=== PATIENT | female | born 1960 ===

== ENCOUNTER 2018-02-18 21:07 | Observation (INO) | payer OTHER ==
[2018-02-18 21:32] VITALS: BMI 35.5
--- NOTE | 2018-02-18 21:47 | ED PDOC ---
Arrival/HPI - General Time Seen by Provider: 02/18/18 21:09 Historian: Patient, Family - History of Present Illness Narrative History of Present Illness (Text): 02/18/18 21:43 Kennedi Zamorano is a 58 year old female, whose past medical history includes hypertension, who presents to the Emergency department accompanied by relative complaining of chest discomfort. Patient states, via relative acting as middleware systems architect, she had eaten shrimp earliier and unsure if this was the cause. Patient states she is able to tolerate PO without difficulty and denies any abdominal pain, nausea, or vomiting. Patient also denies any shortness of breath , back pain, neck pain, headache, dizziness, or any other complaints. PMD: Dr. Mannie Teague Symptom Onset: Gradual Symptom Course: Unchanged Activities at Onset: Light Context: Home Past Medical History - Provider Review Nursing Documentation Reviewed: Yes Family/Social History - Physician Review Nursing Documentation Reviewed: Yes Family/Social History: Unknown Family HX Allergies/Home Meds Allergies/Adverse Reactions: Allergies sulfa Allergy (Uncoded 02/18/18 22:35) ANAPHYLAXIS Home Medications: Home Meds Medication Instructions Recorded Confirmed Aspirin [[facility] Aspirin] 1 tab PO DAILY 02/19/18 02/19/18 Cholecalciferol [Vitamin D] 2,000 iu PO DAILY 02/19/18 02/19/18 Hydroxychloroquine Sulfate 200 mg PO BID 02/19/18 02/19/18 [Plaquenil] Levothyroxine Sodium [Levo-T] 1 tab PO DAILY 02/19/18 02/19/18 Losartan/Hydrochlorothiazide 1 tab PO DAILY 02/19/18 02/19/18 [Losartan-Hctz 100-12.5 mg Tab] Omeprazole [Omeprazole] 20 mg PO DAILY 02/19/18 02/19/18 Simvastatin [Zocor] 40 mg PO DAILY 02/19/18 02/19/18 levETIRAcetam [Keppra] 250 mg PO BID 02/19/18 02/19/18 Review of Systems - Physician Review All systems were reviewed & negative as marked: Yes - Review of Systems Constitutional: Normal. absent: Fevers Eyes: Normal ENT: Normal Respiratory: Normal. absent: SOB, Cough Cardiovascular: Chest Pain Gastrointestinal: Normal. absent: Abdominal Pain, Diarrhea, Nausea, Vomiting Genitourinary Female: Normal. absent: Dysuria, Frequency, Hematuria, Urine Output Changes Musculoskeletal: Normal. absent: Back Pain, Neck Pain Skin: Normal. absent: Rash Neurological: Normal. absent: Headache, Dizziness Endocrine: Normal Hemo/Lymphatic: Normal Psychiatric: Normal Physical Exam Vital Signs Reviewed: Yes Vital Signs Temp Pulse Pulse Resp BP Pulse Ox 02/19/18 04:54 59 L 102 H 102/59 L 98 02/19/18 03:06 74 18 103/68 96 02/18/18 22:40 60 02/18/18 21:32 98.1 F 79 18 125/70 98 Temperature: Afebrile Blood Pressure: Normal Pulse: Regular Respiratory Rate: Normal Appearance: Positive for: Well-Appearing, Non-Toxic, Comfortable Pain Distress: None Mental Status: Positive for: Alert and Oriented X 3 - Systems Exam Head: Present: Atraumatic, Normocephalic Pupils: Present: PERRL Extroacular Muscles: Present: EOMI Conjunctiva: Present: Normal Mouth: Present: Moist Mucous Membranes Neck: Present: Normal Range of Motion. No: Meningeal Signs, MIDLINE TENDERNESS , Paraspinal Tenderness Respiratory/Chest: Present: Clear to Auscultation, Good Air Exchange. No: Respiratory Distress, Accessory Muscle Use Cardiovascular: Present: Regular Rate and Rhythm, Normal S1, S2. No: Murmurs Abdomen: No: Tenderness, Distention, Peritoneal Signs Back: Present: Normal Inspection. No: CVA Tenderness, Midline Tenderness, Paraspinal Tenderness Upper Extremity: Present: Normal Inspection. No: Cyanosis, Edema Lower Extremity: Present: Normal Inspection. No: Edema Neurological: Present: GCS=15, CN II-XII Intact, Speech Normal, Motor Func Grossly Intact, Normal Sensory Function, Normal Cerebellar Funct Skin: Present: Warm, Dry, Normal Color. No: Rashes Psychiatric: Present: Alert, Oriented x 3, Normal Insight, Normal Concentration Medical Decision Making ED Course and Treatment: 02/18/18 21:43 Impression: 58 year old female complaining of chest discomfort. Plan: -- EKG -- Chest X-ray -- Labs, cardiac enzymes -- Reassess and disposition Prior Visits: Notes and results from previous visits were reviewed. Progress Notes: Reviewed EKG, NSR at 74 bpm. Occasional PVC. Non-specific ST/T wave changes. 02/18/18 23:31 Chest X-ray reviewed, shows no acute processes. 02/18/18 23:37 Case discussed with medical practitioners nonprofit manager, who is aware and agrees with plan. Case discussed with Dr. Pineda, who is aware and agrees with plan. Accepts pt in to hospitalist service. Pt will go to Telemetry observation for chest pain. - Lab Interpretations Lab Results: 02/18/18 22:00 02/18/18 22:00 Lab Results 02/18/18 22:00: WBC 8.5, RBC 4.38, Hgb 12.2, Hct 36.5, MCV 83.3, MCH 27.9, MCHC 33.4, RDW 13.9, Plt Count 303, MPV 9.7 02/18/18 22:00: Sodium 143, Potassium 4.1, Chloride 106, Carbon Dioxide 26, Anion Gap 16, BUN 12, Creatinine 0.6 L, Est GFR ( Amer) > 60, Est GFR ( Non-Af Amer) > 60, Random Glucose 111 H, Calcium 8.9, Total Bilirubin 0.3, AST 40 H, ALT 28, Alkaline Phosphatase 106, Lactate Dehydrogenase 497, Total Creatine Kinase 106, Troponin I < 0.01, Total Protein 7.4, Albumin 4.1, Globulin 3.3, Albumin/Globulin Ratio 1.2 02/18/18 22:00: PT 10.7, INR 0.94, APTT 25.4 - RAD Interpretation Radiology Orders: 02/18/18 21:46 CHEST PORTABLE [RAD] Stat - Medication Orders Current Medication Orders: Discontinued Medications Aspirin (Aspirin) 325 mg PO ONCE STA Stop: 02/18/18 21:50 Last Admin: 02/18/18 22:06 Dose: 325 mg - Scribe Statement The provider has reviewed the documentation as recorded by the Bethany Farfan Provider Scribe Attestation: All medical record entries made by the Bethany were at my direction and personally dictated by me. I have reviewed the chart and agree that the record accurately reflects my personal performance of the history, physical exam, medical decision making, and the department course for this patient. I have also personally directed, reviewed, and agree with the discharge instructions and disposition. Disposition/Present on Arrival - Present on Arrival Any Indicators Present on Arrival: No History of DVT/PE: No History of Uncontrolled Diabetes: No Urinary Catheter: No History of Decub. Ulcer: No History Surgical Site Infection Following: None - Disposition Have Diagnosis and Disposition been Completed?: Yes Diagnosis: Chest pain Disposition: HOSPITALIZED Disposition Time: 02:19 Patient Problems: Current Active Problems Problem Status Onset Chest pain Acute Condition: STABLE
[2018-02-18 22:31] LABS: ALB/GLOB RATIO 1.2 (1.1-1.8); ALBUMIN 4.1 g/dL (3.0-4.8); ALT/SGPT 28 U/L (7-56); AST/SGOT 40 U/L (14-36); BLOOD UREA NITROGEN 12 mg/dL (7-21); CALCIUM 8.9 mg/dL (8.4-10.5); GFR AFRICAN-AMERICAN > 60; GFR NON-AFRICAN AMERICAN > 60
[2018-02-18 22:38] LABS: HEMOGLOBIN 12.2 g/dL (12.0-16.0); MEAN CELL VOLUME 83.3 fl (80.0-105.0); MEAN CORPUSCULAR HEMOGLOBIN 27.9 pg (25.0-35.0); MEAN CORPUSCULAR HGB CONC 33.4 g/dl (31.0-37.0); MEAN PLATELET VOLUME 9.7 fl (7.0-11.0); RBC 4.38 10^6/uL (3.5-6.1); RED CELL DISTRIBUTION WIDTH 13.9 % (11.5-14.5); WHITE BLOOD COUNT 8.5 10^3/ul (4.5-11.0)
[2018-02-18 22:42] LABS: TROPONIN I < 0.01 ng/mL
[2018-02-18 22:58] LABS: INR 0.94 (0.93-1.08); PARTIAL THROMBOPLASTIN TIME 25.4 Seconds (25.1-36.5); PROTHROMBIN TIME 10.7 SECONDS (9.4-12.5)
--- NOTE | 2018-02-19 03:44 | CP.PCM.HP ---
History of Present Illness - History of Present Illness History of Present Illness: Noel Verde DO - PGY1 IM [employer] Consultant - Medicine H&P Pt. is a azeri speaking 58F w/ a PMH significant for hyperlipidemia, hypothyroidism, HTN, migraine, meningioma s/p resection, and unknown cardiac history who [place] [facility] [place] w/ a CC of L sided chest pain which began hours prior to presentation. She stated that the pain did not radiate into her arm or neck; and was initially rated as a 9/10. She stated that the pain felt like a burning pain w/ sensation of pins and needles. She also had associated nausea w/ light headedness; however reports no LOC. She denies any trauma to her chest; however some CP reproducible w/ palpation. She reports some shortness of breath, as well as palpitations. Denies any diaphoresis or worsening of chest pain w/ ambulation. She denies any abdominal pain, V/D/C, urinary issues, YOUNG, BV, Dizziness. Of note she does admit to chronic R sided paresthesia/ weakness 2/2 meningioma resection. ROS otherwise negative. During evaluation pt. was asymptomatic resting in bed with no acute distress. No previous admission records found however; she reported a history of hospitalization in [place] for CP and is s/p cardiac cath w/o stent placement >5 years ago. In the ED: Preliminary EKG findings was NSR at 74 w/ some PVC and T wave inversions in lateral leads; Otherwise no conclusive ischemic findings to report. CXR showed no acute pathology, CBC/CMP wnl; Initial troponin drawn at 2200 wnl. PMD - Yaneth Holguin [phone] Pharmacy - [facility] PMH - as above PSH - 3 Csx, Appendectomy, Cholecystectomy, Tonsilectomy, L breast Lumpectomy Home Rx - Zocor 40 QD, Plaquenil 200 BID, Levothyroxine unknown dose, ASA81 QD, Omeprazole 20 QD, Losartan-HCTZ 100-12.5, Keppra 250 BID Social - Lives at home; no EtOH, Smoke, Illicits Present on Admission - Present on Admission Any Indicators Present on Admission: Yes Review of Systems - Constitutional Constitutional: As Per HPI - EENT Eyes: As Per HPI - Cardiovascular Cardiovascular: As Per HPI - Respiratory Respiratory: As Per HPI - Gastrointestinal Gastrointestinal: As Per HPI - Genitourinary Genitourinary: As Per HPI - Musculoskeletal Musculoskeletal: As Per HPI - Integumentary Integumentary: As Per HPI - Neurological Neurological: As Per HPI - Psychiatric Psychiatric: As Per HPI - Endocrine Endocrine: As Per HPI Past Patient History - Infectious Disease Hx of Infectious Diseases: None - Past Social History Smoking Status: Never Smoked - CARDIAC Hx Heart Attack: Yes Hx Hypercholesterolemia: Yes - NEUROLOGICAL Hx Seizures: Yes Other/Comment: Hx of brain tumor - ENDOCRINE/METABOLIC Hx Hyperthyroidism: Yes - GASTROINTESTINAL Hx Gastroesophageal Reflux: Yes - PSYCHIATRIC Hx Substance Use: No - SURGICAL HISTORY Hx Surgeries: Yes Hx Cardiac Catheterization: Yes Other/Comment: Brain Tumor removed. Left breast tumor removed Meds Allergies/Adverse Reactions: Allergies Allergy/AdvReac Type Severity Reaction Status Date / Time sulfa Allergy ANAPHYLAXIS Uncoded 02/18/18 22:35 Physical Exam - Constitutional Appears: Well, Non-toxic, No Acute Distress - Head Exam Head Exam: ATRAUMATIC, NORMOCEPHALIC - Eye Exam Eye Exam: EOMI, Normal appearance, PERRL. absent: Scleral icterus - ENT Exam ENT Exam: Mucous Membranes Moist - Neck Exam Neck exam: Positive for: Normal Inspection Additional comments: No JVD/ Carotid bruit - Respiratory Exam Respiratory Exam: Clear to Auscultation Bilateral, NORMAL BREATHING PATTERN. absent: Rales, Rhonchi, Wheezes, Respiratory Distress - Cardiovascular Exam Cardiovascular Exam: REGULAR RHYTHM, RRR, +S1, +S2. absent: JVD, Systolic Murmur Additional comments: Reproducible L sided chest tenderness to palpation along L sternal border - GI/Abdominal Exam GI & Abdominal Exam: Normal Bowel Sounds, Soft. absent: Mass, Tenderness - Back Exam Back exam: absent: CVA tenderness (L), CVA tenderness (R) - Neurological Exam Neurological exam: Alert, CN II-XII Intact, Oriented x3 - Psychiatric Exam Psychiatric exam: Normal Affect, Normal Mood - Skin Skin Exam: Dry, Intact, Warm Results - Vital Signs Recent Vital Signs: Last Vital Signs Temp 98.1 F 02/18/18 21:32 Pulse 74 02/19/18 03:06 Resp 18 02/19/18 03:06 BP 103/68 02/19/18 03:06 Pulse Ox 96 02/19/18 03:06 - Labs Result Diagrams: 02/18/18 22:00 02/18/18 22:00 Assessment & Plan - Assessment and Plan (Free Text) Assessment: 58F w/ a PMH significant for hyperlipidemia, hypothyroidism, HTN, migraine, meningioma s/p resection, and unknown cardiac history presenting [place] [facility] [place] w/ CC of atypical L sided reproducible chest pain; admitted for ACS r/o. Plan: Atypical L sided angina Troponins negative; Preliminary EKG findings - NSR at 74 w/ some PVC and T wave inversions in lateral leads Pt. asymptomatic at time of evaluation; VSS ASA81 Repeat AM EKG Continue trending troponins Haseeb Score - 2; 8% risk of [place] Cardiology Consulted Hx HTN Continue home Lasrtan Hctz 100-12.5 QD Hx Possible seziures vs migraine Cont Keppra 250 BID GERD cont omeprazole Hypothyroid Cont Levothyroxine 88mcg Hx Autoimmune/ Rheum condition unknown HOLD home Plaquenil 200 BID until diagnosis confirmed Hx HLD Cont home Simvastatin 40 QD Hx GERD Omeprazole GI / DVT prophylaxis; home omeprazole / lovenox Pt. examined, seen. and discussed at length w/ attending Dr. Miriam Verde DO PGY1 IM [employer] Consultant - Date & Time Date: 02/19/18 Time: 06:56
[2018-02-19 08:14] VITALS: TEMP 98; O2SAT 98
--- NOTE | 2018-02-19 08:54 | RAD ---
Date of service: 02/18/2018 HISTORY: chest pain COMPARISON: No prior. FINDINGS: LUNGS: No active pulmonary disease. PLEURA: No significant pleural effusion identified, no pneumothorax apparent. CARDIOVASCULAR: Normal. OSSEOUS STRUCTURES: No significant abnormalities. VISUALIZED UPPER ABDOMEN: Normal. OTHER FINDINGS: None. IMPRESSION: No active disease.
[2018-02-19 09:08] LABS: BASO # 0.02 K/mm3 (0.0-2.0); BASO % 0.3 % (0.0-3.0); EOS # 0.3 (0.0-0.7); EOS % 4.9 % (1.5-5.0); GRAN # 3.32 (1.4-6.5); GRAN % 51.1 % (50.0-68.0); HEMOGLOBIN 12.4 g/dL (12.0-16.0); LYMPH # 2.5 (1.2-3.4); LYMPH % 37.7 % (22.0-35.0); MEAN CELL VOLUME 82.8 fl (80.0-105.0); MEAN CORPUSCULAR HEMOGLOBIN 27.7 pg (25.0-35.0); MEAN CORPUSCULAR HGB CONC 33.5 g/dl (31.0-37.0); MEAN PLATELET VOLUME 9.2 fl (7.0-11.0); MONO # 0.4 (0.1-0.6); RBC 4.47 10^6/uL (3.5-6.1); RED CELL DISTRIBUTION WIDTH 13.9 % (11.5-14.5); WHITE BLOOD COUNT 6.5 10^3/ul (4.5-11.0)
[2018-02-19 09:25] LABS: ALB/GLOB RATIO 1.3 (1.1-1.8); ALBUMIN 4.2 g/dL (3.0-4.8); ALT/SGPT 28 U/L (7-56); AST/SGOT 29 U/L (14-36); BLOOD UREA NITROGEN 11 mg/dL (7-21); GFR AFRICAN-AMERICAN > 60; GFR NON-AFRICAN AMERICAN > 60; HDL CHOLESTEROL 53 mg/dL (29-60)
[2018-02-19 09:31] LABS: LDL CHOLESTEROL 59 mg/dL (0-129)
[2018-02-19] MEDS ORDERED: Levothyroxine 88 MCG TAB PO SCH (10:00)
[2018-02-19] MEDS ORDERED: Enoxaparin 40 mg Syringe SC SCH (10:00)
[2018-02-19] MEDS ORDERED: Pantoprazole 40 mg EC Tab PO SCH (10:00)
[2018-02-19] MEDS ORDERED: Cholecalciferol 1,000 INTLU TAB PO SCH (10:00)
[2018-02-19] MEDS ORDERED: Non Formulary Medication (Losartan/Hydrochlorothiazide [Losartan-Hctz 100-12.5 Mg Tab] 1 T PO SCH (10:00)
--- NOTE | 2018-02-19 10:15 | CARD ---
APPROVED REPORT Date of service: 02/18/2018 EKG Measurement Heart [id number] <Conclusion> Sinus rhythm with occasional premature ventricular complexes Nonspecific ST and T wave abnormality Abnormal ECG
[2018-02-19 12:36] VITALS: RESP 18
[2018-02-19 13:46] VITALS: BP 112/66; PULSE 58
[2018-02-19] MEDS ORDERED: Pneumococcal 23-Valent Vaccine IM ONE (13:46)
--- NOTE | 2018-02-19 16:07 | CP.PCM.DIS ---
Provider - Provider Date of Admission: 02/19/18 02:18 Attending physician: Hans Gutierrez MD Primary care physician: Yaneth Teague MD Time Spent in preparation of Discharge (in minutes): 45 Diagnosis - Discharge Diagnosis (1) Chest pain Status: Resolved (2) Hyperlipemia Status: Chronic (3) Hypothyroidism Status: Acute (4) Hypertension Status: Chronic Hospital Course - Lab Results Lab Results: Most Recent Lab Values WBC 6.5 10^3/ul (4.5-11.0) D 02/19/18 09:00 RBC 4.47 10^6/uL (3.5-6.1) 02/19/18 09:00 Hgb 12.4 g/dL (12.0-16.0) 02/19/18 09:00 Hct 37.0 % (36.0-48.0) 02/19/18 09:00 MCV 82.8 fl (80.0-105.0) 02/19/18 09:00 MCH 27.7 pg (25.0-35.0) 02/19/18 09:00 MCHC 33.5 g/dl (31.0-37.0) 02/19/18 09:00 RDW 13.9 % (11.5-14.5) 02/19/18 09:00 Plt Count 279 10^3/uL (120.0-450.0) 02/19/18 09:00 MPV 9.2 fl (7.0-11.0) 02/19/18 09:00 Gran % 51.1 % (50.0-68.0) 02/19/18 09:00 Lymph % (Auto) 37.7 % (22.0-35.0) H 02/19/18 09:00 Maverick % (Auto) 6.0 % (1.0-6.0) 02/19/18 09:00 Eos % (Auto) 4.9 % (1.5-5.0) 02/19/18 09:00 Baso % (Auto) 0.3 % (0.0-3.0) 02/19/18 09:00 Gran # 3.32 (1.4-6.5) 02/19/18 09:00 Lymph # (Auto) 2.5 (1.2-3.4) 02/19/18 09:00 Maverick # (Auto) 0.4 (0.1-0.6) 02/19/18 09:00 Eos # (Auto) 0.3 (0.0-0.7) 02/19/18 09:00 Baso # (Auto) 0.02 K/mm3 (0.0-2.0) 02/19/18 09:00 PT 10.7 SECONDS (9.4-12.5) 02/18/18 22:00 INR 0.94 (0.93-1.08) 02/18/18 22:00 APTT 25.4 Seconds (25.1-36.5) 02/18/18 22:00 Sodium 142 mmol/L (132-148) 02/19/18 09:00 Potassium 3.8 mmol/L (3.6-5.0) 02/19/18 09:00 Chloride 106 mmol/L (98-107) 02/19/18 09:00 Carbon Dioxide 24 mmol/L (21-33) 02/19/18 09:00 Anion Gap 16 (10-20) 02/19/18 09:00 BUN 11 mg/dL (7-21) 02/19/18 09:00 Creatinine 0.5 mg/dl (0.7-1.2) L 02/19/18 09:00 Est GFR ( Amer) > 60 02/19/18 09:00 Est GFR (Non-Af Amer) > 60 02/19/18 09:00 Random Glucose 95 mg/dL (70-110) 02/19/18 09:00 Hemoglobin A1c 5.9 % (4.2-6.5) 02/19/18 09:00 Calcium 9.0 mg/dL (8.4-10.5) 02/19/18 09:00 Phosphorus 3.3 mg/dL (2.5-4.5) 02/19/18 09:00 Magnesium 2.3 mg/dL (1.7-2.2) H 02/19/18 09:00 Total Bilirubin 0.5 mg/dL (0.2-1.3) 02/19/18 09:00 AST 29 U/L (14-36) 02/19/18 09:00 ALT 28 U/L (7-56) 02/19/18 09:00 Alkaline Phosphatase 92 U/L (38-126) 02/19/18 09:00 Lactate Dehydrogenase 497 U/L (333-699) 02/18/18 22:00 Total Creatine Kinase 106 U/L (35-230) 02/18/18 22:00 Troponin I < 0.01 ng/mL 02/19/18 09:00 Total Protein 7.5 g/dL (5.8-8.3) 02/19/18 09:00 Albumin 4.2 g/dL (3.0-4.8) 02/19/18 09:00 Globulin 3.3 gm/dL 02/19/18 09:00 Albumin/Globulin Ratio 1.3 (1.1-1.8) 02/19/18 09:00 Triglycerides 113 mg/dL (35-160) 02/19/18 09:00 Cholesterol 140 mg/dL (130-200) 02/19/18 09:00 LDL Cholesterol Direct 59 mg/dL (0-129) 02/19/18 09:00 HDL Cholesterol 53 mg/dL (29-60) 02/19/18 09:00 TSH 3rd Generation 0.02 mIU/mL (0.46-4.68) L 02/19/18 09:00 - Hospital Course Hospital Course: 58 year old Female who presented with atypical, reproducible chest pain. EKG x2 showed normal sinus rhythm, and medical record report from [facility] was received which showed a negative nuclear stress test result. Troponins were negative x3 and no further complaints of chest pain were noted. ASCVD score was not calculated at this time due to a documented negative stress test. COSME score was 2, and it was determined that she was low risk thus no engineering lab technician was necessary at this time. Patient was discharged on ASA, a statin and an ARB due to past [place]. Patient was not placed on a beta paul at that time , so patient was told to follow up with glost tile shader. Patient was deemed stable for discharge. Discharge Exam - Head Exam Head Exam: ATRAUMATIC, NORMOCEPHALIC - Eye Exam Eye Exam: EOMI, Normal appearance Pupil Exam: NORMAL ACCOMODATION, PERRL - Neck Exam Neck exam: Normal Inspection - Respiratory Exam Respiratory Exam: Clear to PA & Lateral, NORMAL BREATHING PATTERN, UNREMARKABLE - Cardiovascular Exam Cardiovascular Exam: REGULAR RHYTHM, RRR, +S1, +S2 Additional comments: Patient tender to palpation over sternal angle without radiation - GI/Abdominal Exam GI & Abdominal Exam: Normal Bowel Sounds - Extremities Exam Extremities exam: normal capillary refill - Back Exam Back exam: FULL ROM - Neurological Exam Neurological exam: Alert, CN II-XII Intact, Normal Gait, Oriented x3, Reflexes Normal - Psychiatric Exam Psychiatric exam: Normal Affect, Normal Mood - Skin Skin Exam: Dry, Intact, Normal Color, Warm Discharge Plan - Discharge Medications Prescriptions: Aspirin [[place] Aspirin] 1 tab PO DAILY #14 tablet. Levothyroxine [Synthroid] 88 mcg PO DAILY #14 tab Losartan/Hydrochlorothiazide [Losartan-Hctz 100-12.5 mg Tab] 1 tab PO DAILY #14 tablet Simvastatin [Zocor] 40 mg PO DAILY #14 tablet - Follow Up Plan Condition: STABLE Disposition: HOME/ ROUTINE Patient education suggested?: Yes Instructions: Chest Pain (DC), Chest Pain (GEN) Additional Instructions: Please follow up with your primary care doctor and glost tile shader in 1 week. Continue home medications. Please return if symptoms return. Referrals: Yaneth Teague MD [Primary Care Provider] -
== END 2018-02-19 17:52 | disposition home or self-care (01) ==
LOC: ED 21:07 → ERH 02-19 02:18 → 3RSO 02-19 13:22
PROVIDERS: ADMIT Internal Medicine; ATTEND Internal Medicine
DX: R07.89 Other chest pain (principal); I10 Essential (primary) hypertension; E78.00 Pure hypercholesterolemia, unspecified; E03.9 Hypothyroidism, unspecified; K21.9 Gastro-esophageal reflux disease without esophagitis; G43.909 Migraine, unspecified, not intractable, without status migrainosus; Z86.011 Personal history of benign neoplasm of the brain
CPT/HCPCS: 71045; 80053; 80061; 82550; 83036; 83615; 83735; 84100; 84443; 84484; 85025; 85027; 85610; 85730; 93005; 96372; 99285; G0378; J1650